=== PATIENT | female | born 1950 | race Two or more races ===

== ENCOUNTER 2024-11-24 10:46 | Outpatient (OUT) | payer MEDICARE, OTHER, SELFPAY ==
--- NOTE | 2024-11-24 11:27 | ECG_ITS ---
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 Measurements Intervals [place] Rate: 77 P: 64 ND: 150 QRS: 40 QRSD: 73 T: 84 QT: 386 QTc: 438 Interpretive Statements SINUS RHYTHM Normal ECG No previous ECG available for comparison Electronically Signed On 11-24-2024 17:29:59 EDT by SEB THOMPSON M.D.
[2024-11-24 11:54] LABS: Hematocrit 39.6 % (36.0-48.0); Hemoglobin 13.1 g/dL (12.0-16.0); Immature Granulocytes Abs Auto 0.02 10^3/uL (0.00-0.03); Immature Granulocytes Pct Auto 0.2 % (0.0-0.5); Lymphocytes Absolute Auto 1.8 10^3/uL (1.2-3.8); Mean Corpuscular HGB Conc 33.1 g/dL (29.9-35.2); Mean Corpuscular Hemoglobin 31.1 pg (26.7-34.0); Mean Corpuscular Volume 94.1 fL (81.0-99.0); Platelet Count 257 10^3/uL (150-450); Red Blood Count 4.21 10^6/uL (4.20-5.40); White Blood Count 9.2 10^3/uL (4.0-11.0)
[2024-11-24 12:06] LABS: INR 0.97; Partial Thromboplastin Time 26.0 sec (22.3-36.2); Prothrombin Time 10.3 sec (9.0-11.6)
[2024-11-24 12:11] LABS: Anion Gap 15.8; Blood Urea Nitrogen 21.0 mg/dL (7.0-18.0); Calcium 9.2 mg/dL (8.5-10.1); Carbon Dioxide 25.4 mmol/L (21.0-32.0); Chloride 103 mmol/L (98-107); Estimated GFR (African America 53 (>=60 mL/min/1.73m^2); Estimated GFR (Non-African Ame 44 (>=60 mL/min/1.73m^2); Glucose 110 mg/dL (74-106); Potassium 4.2 mmol/L (3.5-5.1); Sodium 140 mmol/L (136-145)
== END 2024-11-24 10:47 | disposition home or self-care (01) ==
LOC: PST 10:49
PROVIDERS: Visit Provider Otolaryngology
DX: Z01.810 Encounter for preprocedural cardiovascular examination (principal); Z01.812 Encounter for preprocedural laboratory examination; S02.2XXA Fracture of nasal bones, initial encounter for closed fracture
CPT/HCPCS: 80048; 85025; 85610; 85730; 93005

== ENCOUNTER 2024-11-25 09:39 | Day surgery (SDC) | payer MEDICARE, OTHER, SELFPAY ==
--- NOTE | 2019-11-26 | OP_ITS ---
OPERATION DATE: 11/25/2024 PREOPERATIVE DIAGNOSIS: Closed nasal fracture. POSTOPERATIVE DIAGNOSIS: Closed nasal fracture. PROCEDURE: Closed reduction nasal fracture. ANESTHESIA: General endotracheal. COMPLICATIONS: None. FINDINGS: Displaced nasal bones to the right. INDICATIONS: This 74-year-old woman presented after falling and striking her face, resulting in extensive nasal abrasions and a displaced nasal fracture. Patient was brought to the OR for reduction of her fracture. Postoperative splinting was not used because of the extensive nature of her nasal abrasions. PROCEDURE: Patient identified in the holding area and taken back to the OR, where she was placed in a supine position. After induction of general endotracheal anesthesia, Afrin soaked pledgets were placed in each side of the nose and, after waiting adequate time for decongestion, the nose was palpated. The fracture was identified, and a Collins elevator inserted into the nose. The nasal dorsum was then elevated and, using pressure with the elevator to the left and with a thumb to the left, the fracture was reduced. The patient was then awakened and taken to the recovery room in good condition. FRANK
[2024-11-24 11:08] VITALS: BP 151/77; PULSE 81; TEMP 36.2; O2SAT 97; BMI 23.1
[2024-11-25] VITALS (14 sets, daily range): BP systolic 99–152; BP diastolic 60–97; PULSE 67–83; TEMP 36.4; O2SAT 92–98; BMI 22.9
[2024-11-25] MEDS: OXYMETAZOLINE HCL 0.05% NASAL SPRAY 30 SPRAY NS (10:46)
[2024-11-25] MEDS: ACETAMINOPHEN 325 MG TABLET 650 MG PO (11:09)
[2024-11-25] MEDS: KETOROLAC TROMETHAMINE 30 MG/ML VIAL 15 MG IVP (11:09)
--- NOTE | 2024-11-25 11:43 | PC.NURSE ---
PATIENT HAS BEEN COUGHNG AND SPITTING UP BLOODY MUCOUS. DR ANDERSON STATES IT IS TO BE EXPECTED.
== END 2024-11-25 12:20 | disposition home or self-care (01) ==
PROVIDERS: Visit Provider Otolaryngology
PROC: (CPT 21315; principal; 2024-11-25 10:30)
DX: S02.2XXA Fracture of nasal bones, initial encounter for closed fracture (principal); I10 Essential (primary) hypertension; W01.0XXA Fall on same level from slipping, tripping and stumbling without subsequent striking against object, initial encounter; E78.5 Hyperlipidemia, unspecified; E11.9 Type 2 diabetes mellitus without complications; E03.9 Hypothyroidism, unspecified
CPT/HCPCS: 21315; 36415; J0330; J1100; J1885; J2405; J2704; J3010